=== PATIENT | male | born 1940 | race African-American/Black ===

== ENCOUNTER 2020-03-15 09:22 | Outpatient (CLI) | payer MEDICARE, BC, SELFPAY ==
--- NOTE | 2020-03-15 | ECHO_ITS ---
Patient Info Name: Shawn Ritter Age: 79 years : 1940 Gender: Male Ht: 70 in Wt: 188 lbs BSA: 2.07 m2 HR: 55 bpm BP: 146 / 74 mmHg Heart Rhythm: Bradycardia, Sinus Rhythm Technical Quality: Good Exam Date: 03/15/2020 9:49 AM Exam Location: [facility] Patient Status: Outpatient Admit Date: 03/15/2020 Staff Ordering Physician: BharatAshok MD Cable Testers Helper: Cosme Mccray RDCS Attending Provider: BharatAshok MD Exam Type: CA echo doppler color flow Study Info Indications R00.2 - Palpitations Complete two-dimensional, color flow and Doppler transthoracic echocardiogram is performed. Strain analysis performed. History/Risk Factors Palpitations, HTN. Summary 1. Left ventricular systolic function is normal, estimated at 60-65%. 2. The left ventricular diastolic function is normal. 3. Right ventricular chamber dimension is normal. 4. Left atrial chamber dimension is mildly enlarged. 5. There is trace mitral valve regurgitation. Left Ventricle Left ventricular chamber dimension is normal. Left ventricular systolic function is normal, estimated at 60-65%. The left ventricular diastolic function is normal. Right Ventricle Right ventricular chamber dimension is normal. Left Atria Left atrial chamber dimension is mildly enlarged. Right Atria Right atrial chamber dimension is normal. Aortic Valve The aortic valve is trileaflet. There is mild aortic valve sclerosis. Pulmonic Valve The pulmonic valve is not well visualized. Mitral Valve The mitral valve has normal leaflets. There is trace mitral valve regurgitation. Tricuspid Valve The tricuspid valve leaflets are normal. Pericardium/Pleural The pericardium appears normal. Aorta The aortic root size at the sinus of Valsalva is normal. Left Ventricular Outflow Tract Name Value Normal LVOT 2D LVOT Diameter 2.0 cm LVOT Doppler LVOT Peak Gradient 5 mmHg LVOT Mean Gradient 2 mmHg LVOT VTI 25 cm LVOT VTI/AV VTI Ratio 0.7 LVOT Stroke Volume 75 ml LVOT CO 3.9 l/min LVOT CI 1.9 l/min/m2 Mitral Valve Name Value Normal MV Doppler MV Decel [place] 398 cm/s2 MV PHT 72 ms MV Area (PHT) 3.0 cm2 4.0-5.0 MV Diastolic Function MV E Peak Velocity 99 cm/s MV A Peak Velocity 84 cm/s MV E/A 1.2 MV Decel Time 250 ms MV Annular TDI --
== END 2020-03-15 09:23 | disposition home or self-care (01) ==
PROVIDERS: PCP Internal Medicine; Visit Provider Internal Medicine
DX: R00.2 Palpitations (principal); I51.7 Cardiomegaly
CPT/HCPCS: 93306

== ENCOUNTER 2023-12-11 02:47 | Inpatient (IN) | payer MEDICARE, BC, SELFPAY ==
[2023-12-11] VITALS (20 sets, daily range): BP systolic 132–189; BP diastolic 58–91; PULSE 60–99; RESP 14–20; TEMP 36–37; O2SAT 95–100; BMI 27.8
--- NOTE | ~2023-12-11 | CT_ITS ---
EXAMINATION: CT abdomen pelvis w con DATE: 12/11/2023 04:54 INDICATION: Left lower quadrant abdominal pain TECHNIQUE: Computed tomography (CT) of the abdomen and pelvis was performed with 100 cc Omnipaque 350 intravenous contrast. The dose-length product was 617.59 mGy-cm. Automated exposure control and iter ative reconstruction technique were employed. COMPARISON: None. FINDINGS: There is dependent atelectasis. Heart size normal. No significant pleural or pericardial ef fusion. There is a vascular mass in the dome of the liver measuring approximately 1.8 cm, most likely benign hemangioma. The spleen, pancreas, adrenal glands are unremarkable. Small subcentimeter hypode nsities of the kidneys, most likely benign cysts. There is atherosclerosis of the aorta without aneur ysm. Mild mesenteric edema. No lymphadenopathy. Colonic diverticulosis. Mildly thickened appendix wit h enhancement. Appendix measures 8 mm. Cannot exclude appendicitis. Air-fluid levels present througho ut the small bowel and colon. No transition is identified. Findings suspicious for ileus. No free air or free fluid. No evidence for pneumatosis or portal venous gas. No free air. No abscess. Moderate l umbar spondylosis. IMPRESSION: 1. Mildly thickened appendix measuring 8 mm with enhancement, suspicious for appendicitis. Clinically correlate. 2: Fluid-filled nondilated small bowel and colon with air-fluid levels, suspicious for ileus. Reviewed, dictated and finalized at location A. IMPRESSION: 1. Mildly thickened appendix measuring 8 mm with enhancement, suspicious for ap pendicitis. Clinically correlate. 2: Fluid-filled nondilated small bowel and colon with air-fluid levels, suspici ous for ileus.
[2023-12-11 03:49] LABS: Basophils Percent Auto 0.3 % (0.2-1.2); Hematocrit 33.5 % (42.0-52.0); Hemoglobin 11.1 g/dL (14.0-18.0); Immature Granulocyte Absolute 0.01 K/mm3 (0.00-0.031); Immature Granulocyte Percent A 0.3 % (0-0.5); Lymphocytes Percent Auto 12.6 % (18.3-44.2); Mean Corpuscular HGB Conc 33.1 g/dl (32-36); Mean Corpuscular Hemoglobin 32.9 pg (26-34); Mean Corpuscular Volume 99.4 fl (80-100); Mean Platelet Volume 9.9 fl (7.4-10.4); Monocytes Absolute Auto 0.3 K/mm3 (0.1-0.6); Monocytes Percent Auto 7.8 % (2.6-8.5); Neutrophils Absolute Auto 3.1 K/mm3 (1.3-6.7); Platelet Count Result 222 k/mm3 (150-375); Red Blood Count 3.37 M/mm3 (4.6-6.20); Red Cell Distribution Width 15.2 % (11.5-14.5)
[2023-12-11 04:00] LABS: Alanine Aminotransferase 13 U/L (6-50); Albumin Level 4.3 g/dL (3.5-5.1); Alkaline Phosphatase 63 U/L (38-126); Anion Gap 13 mmol/L (4-12); Aspartate Amino Transferase 23 U/L (17-59); Bilirubin,Total 1.2 mg/dL (0.2-1.3); Blood Urea Nitrogen 19 mg/dL (9-20); Calcium 9.5 mg/dL (8.4-10.2); Carbon Dioxide 22 mmol/L (22-30); Chloride 104 mmol/L (98-107); Estimated CRCL calculation 33 ml/min; Estimated Glomerular Filt Rate 50; Glucose 167 mg/dL (65-110); Lipase 22 U/L (23-300); Potassium 4.1 mmol/L (3.4-5.0); Sodium 139 mmol/L (137-145)
--- NOTE | 2023-12-11 04:44 | ED.ABDPAIN ---
HPI - Abdominal Pain General Chief Complaint: Abdominal Pain <Surendra Valerio MD - Last Filed: 12/11/23 04:48> Stated Complaint: abd pain <Surendra Valerio MD - Last Filed: 12/11/23 04:48> Time Seen by Provider: 12/11/23 03:28 <Surendra Valerio MD - Last Filed: 12/11/23 04:48> History of Present Illness HPI narrative: This is an 83-year-old male, with history of hypertension hyperlipidemia, presents to the emergency department complaining of abdominal pain the past day. The patient describes abdominal pain as cramping and sharp, rated 8/10 and primary located in the left lower quadrant without radiation. He denies associated nausea vomiting or diarrhea. He states his last bowel movement was 2 days ago and he has been able to pass gas. He has no other complaints at this time. <Surendra Valerio MD - Last Filed: 12/11/23 04:48> Related Data Allergies/Adverse Reactions: Allergies Allergy/AdvReac Type Severity Reaction Status Date / Time No Known Allergies Allergy Verified 12/11/23 03:33 <Surendra Valerio MD - Last Filed: 12/11/23 04:48> Review of Systems Review of Systems: CONSTITUTIONAL: Denies fever, chills, or sweats. ENT: Denies rhinorrhea, congestion, sore throat, or otalgia. CARDIOVASCULAR: Denies chest pain, palpitations, or edema. RESPIRATORY: Denies cough or dyspnea. GASTROINTESTINAL: Left lower quadrant abdominal pain Denies nausea, vomiting, or diarrhea. GENITOURINARY: Denies dysuria or hematuria. SKIN: Denies rash or itching. MUSCULOSKELETAL: Denies back pain, joint pain, or myalgia. NEUROLOGIC: Denies headache, numbness, dizziness, or weakness. PSYCHIATRIC: Denies anxiety or depression. <Surendra Valerio MD - Last Filed: 12/11/23 04:48> PMF Past Medical History Medical History: Medical History Hyperlipidemia Hypertension <Surendra Valerio MD - Last Filed: 12/11/23 04:48> Surgical History Surgical History: Surgical History No significant past surgical history <Surendra Valerio MD - Last Filed: 12/11/23 04:48> Social History Social History: Social History Smoking status: Never smoker Alcohol intake: never Substance use: never <Surendra Valerio MD - Last Filed: 12/11/23 04:48> Exam Narrative: GENERAL: Well-developed, well-nourished, and in no acute distress. HEAD: Normocephalic, atraumatic. EYES: PERRLA and EOMI. CHEST: Clear to auscultation. No respiratory distress. No wheezes rales or rhonchi HEART: Regular rate and rhythm. No murmur heard. Normal peripheral pulses. ABDOMEN: Soft, tender to palpation in the left lower quadrant, without rebound or guarding, nondistended, normal active bowel sounds. EXTREMITIES: Normal range of motion. No edema. SKIN: Warm, dry, no rash. NEURO: Alert and oriented x3. No focal deficit. Moving all 4 limbs spontaneously PSYCH: Normal mood and affect. <Surendra Valerio MD - Last Filed: 12/11/23 04:48> Course Course Emergency Course: 04:35 - Bedside ultrasound by me demonstrates a normal appearing bladder without distention. CBC demonstrates mild anemia with hemoglobin 11.1. White blood cell count slightly decreased at 4.0 but is otherwise unremarkable. Chemistries demonstrate creatinine elevation of 1.6. The patient states he has had elevated creatinine since previously but is not sure of the number. Lipase slightly low at 22. Chemistries otherwise unremarkable. 05:00 - Patient signed out to oncoming ED physician, Dr. Franco pending imaging results. <Surendra Valerio MD - Last Filed: 12/11/23 04:48> Reevaluation(s) Reevaluation #1: 0500: Patient signed out to me pending CT imaging. I was called by Radiology with concern for possible appendicitis versus colitis. I did discuss this with the patie
[2023-12-11] MEDS: ONDANSETRON INJ 4 MG/2 ML VIAL IV PUSH (04:57)
[2023-12-11] MEDS: SODIUM CHLORIDE 0.9% IV 1,000 ML 999 ML IV CONT (04:57)
[2023-12-11] MEDS: MORPHINE SULFATE (*CRX) 4 MG/ML INJ IV PUSH (04:57)
[2023-12-11] MEDS: PIPERACILLN/TAZ 3.375GM/NS50ML 3.375 GM/50 ML BAG IVPB ×4 (06:24→23:55)
[2023-12-11 08:02] LABS: Appearance Urine Clear (Clear); Bacteria Urine None Seen /hpf; Bilirubin Urine Negative (Negative); Blood Urine Trace (Negative); Color Urine Yellow (Yellow); Glucose Urine UA Negative (Negative); Ketones Urine Negative (Negative); Leukocyte Esterase Ur Negative LEU/UL (Negative); Nitrate Urine Negative (Negative); Non Pathogenic Casts 0-2; Protein Urine 1+ mg/dL (Negative); RBC Urine 0-2 /hpf (0-2); Squamous Epithelial Cell Urine None Seen /hpf (Few); WBC Urine 0-5 /hpf (0-3)
[2023-12-11 08:11] LABS: CRP 8.5 mg/dL (<1.0)
[2023-12-11 08:17] LABS: Specific Grav Ur 1.061 (1.001-1.035)
[2023-12-11 08:19] LABS: Add Urine Microscopic? YES
--- NOTE | 2023-12-11 08:32 | PC.NURSE ---
This patient, Shawn Ritter, was admitted to Medical Room 249-01. Patient/family oriented to hospital policies and general routines including ID bracelet, bed and alarms, visiting hours, pain management, procedures, bathroom and other care routines, personal items, smoking policy, room service/diet, and visiting hours. Information on how to activate the Rapid Response Team has been discussed. Patient/Family are encouraged to report perceived risks to care and to ask questions if they do not understand what they are told or what they should do.
[2023-12-11] MEDS: SODIUM CHLORIDE 0.9% IV 1,000 ML 75 ML IV CONT (08:34)
--- NOTE | 2023-12-11 09:44 | PM.CNGS ---
Assessment and Plan Assessment and plan (1) Acute appendicitis with localized peritonitis: Qualifiers: Appendicitis gangrene presence: unspecified whether gangrene present Appendicitis perforation presence: unspecified whether perforation present Appendicitis abscess presence: unspecified whether abscess present Qualified Code(s): K35.30 - Acute appendicitis with localized peritonitis, without perforation or gangrene Code(s): K35.30 - Acute appendicitis with localized peritonitis, without perforation or gangrene Status: Acute Assessment and Plan: I have reviewed the CT and discussed the findings with the patient. He has evidence of acute appendicitis. I discussed both medical and surgical treatment options. Patient would prefer to proceed with surgery. I have recommended laparoscopic appendectomy, possible open. I discussed the procedure, risks, benefits, and alternatives. Questions were answered. Patient was started on Zosyn in the emergency department. Will continue antibiotics perioperatively. (2) Hypertension: Qualifiers: Hypertension type: primary hypertension Qualified Code(s): I10 - Essential (primary) hypertension Code(s): I10 - Essential (primary) hypertension Status: Acute History of Present Illness Consult details Consult date: 12/11/23 Reason for consult: other (Right lower quadrant pain) Narrative: This is an 83-year-old man who I am asked to see for right lower quadrant pain. He presented to the emergency department overnight with symptoms that started yesterday morning. He states that he was feeling constipated for about 2 or 3 days prior to this. His pain is localized to the right lower quadrant. He was feeling chills yesterday as well. He denied any nausea or vomiting. In the emergency department a CT was performed. The initial CT reading from the overnight radiologist was possible colitis and appendicitis, however the radiologist this morning is reading it as acute appendicitis and possible ileus. The patient has never had any abdominal surgeries before. He has never had symptoms like this before. Review of Systems Review of Systems: All systems reviewed & are unremarkable except as noted in HPI and below Eyes: Eyes: Denies change in vision ENT: Denies hearing loss, Denies neck pain and Denies sore throat Cardiovascular: Cardiovascular: Denies chest pain and Denies dyspnea Respiratory: Respiratory: Denies cough, Denies dyspnea and Denies wheezing Gastrointestinal: Gastrointestinal: Reports as per HPI Genitourinary: Genitourinary: Denies hematuria and Denies dysuria Musculoskeletal: Musculoskeletal: Denies arthralgias, Denies joint swelling and Denies neck pain Allergic/Immunologic: Allergic/Immunologic: Denies wheezing [facility] Past Medical History Medical History (Updated 12/11/23 @ 09:49 by Skyler Bravo DO) Hyperlipidemia Hypertension Surgical History Surgical History No significant past surgical history Family History Family History (Updated 12/11/23 @ 09:47 by Skyler Bravo DO) Other Family history non-contributory Social History Social History Smoking status: Never smoker Alcohol intake: never Substance use: never Meds Home Medications and Allergies Allergies Allergy/AdvReac Type Severity Reaction Status Date / Time No Known Allergies Allergy Verified 12/11/23 03:33 Vital Signs Vital Signs - 24 hr 12/11/23 02:50 12/11/23 05:18 12/11/23 06:00 Temperature 36.8 C Pulse Rate 99 68 78 Respiratory Rate 18 18 17 Blood Pressure 182/67 H 189/91 H Pulse Oximetry 99 99 96 Oxygen Delivery Room Air 12/11/23 06:25 12/11/23 06:31 12/11/23 06:46 Temperature Pulse Rate 73 77 68 Respiratory Rate 15 20 17 Blood Pressure 149/67 H 169/71 H 148/65 H Pulse Oximetry 97 98
--- NOTE | 2023-12-11 09:50 | WPDHPUPDATE1 ---
History and Physical Update Update Date/Time: 12/11/23 09:50 History and Physical has been reviewed, including an updated exam of the patient. There are NO changes in the patient's condition. Risks, benefits, and alternatives have been discussed and questions answered. Patient agrees to proceed with procedure.
[2023-12-11] MEDS: LACTATED RINGERS 1,000 ML 30 ML IV CONT (10:30)
--- NOTE | 2023-12-11 10:43 | PM.IMHP ---
H&P: HPI History of Present Illness Date/Time: 12/11/23 10:43 Chief Complaint: Right lower quadrant abdominal pain Narrative: This is an 83-year-old gentleman with past medical history of diabetes on metformin, hypertension, hyperlipidemia, gout, and seasonal allergies who presents to the ER with complaints of right lower quadrant abdominal pain x2 days. He also reports subjective fever and chills without nausea or vomiting. He has been unable to have a bowel movement since Wednesday. He reports the pain has been sharp and intermittent in nature. Nothing seems to help the pain or make it worse. He did just stop eating yesterday because the pain was getting worse which is what prompted him to be evaluated. On exam he still has right lower quadrant pain but he says that it has decreased significantly with IV morphine. In the ER, labs were significant for white count 4.0, hemoglobin 11.1, neutrophils 79, creatinine 1.60, glucose 167, and CRP 8.5. His urinalysis was negative. CT abdomen and pelvis showed mildly thickened appendix measuring 8 mm with enhancement. There also fluid-filled nondilated small bowel and colon with air-fluid levels suspicious for ileus. Surgery was consulted. The patient will be admitted in this setting for likely surgical intervention. Review of Systems Review of Systems: All systems reviewed & are unremarkable except as noted in HPI and below PMFSH Past Medical History Medical History Hyperlipidemia Hypertension Surgical History Surgical History No significant past surgical history Family History Family History Other Family history non-contributory Social History Social History (Updated 12/11/23 @ 10:53 by Sienna Villegas APRN) Smoking status: Former smoker Tobacco type: cigarettes Smoking end date: 08/28/69 Alcohol intake: current Drinks per week: 2 Substance use: never Do You Feel Safe in your Home?: Yes Lack of Transportation: No Lack of Food: Never True Current Housing: I Have Housing Concerned About Future Housing: No Difficulty Paying Gas/Electric Bills: No Difficulty Paying for Meds: No Currently Unemployed: No Education: Master's Degree or Higher Difficulty w/ Childcare or Family Care: No Living arrangements: alone Additional living arrangements comments: lives alone, is , and has 1 adult child, Patric Ritter. Patient lists his friend Jannet Suarez, friend as his emergency contact [phone] Occupation/Education: retired Additional occupation/education comments: [employer] Gender identity (if verbalized by the patient): Male Spiritual care concerns: No Meds Home Medications and Allergies Home Medications Medication Instructions Recorded Confirmed Type Zyrtec 10 mg PO DAILY 12/11/23 12/11/23 History aspirin 81 mg tablet,delayed 81 mg PO HS 12/11/23 12/11/23 History release (Enteric Coated Aspirin) atorvastatin 40 mg PO HS 12/11/23 12/11/23 History ferrous sulfate 750 mg PO DAILY 12/11/23 12/11/23 History levothyroxine 137 mcg tablet 137 mcg PO DAILY 12/11/23 12/11/23 History loratadine 10 mg tablet 10 mg PO DAILY 12/11/23 12/11/23 History metformin 750 mg tablet,extended 750 mg PO BID 12/11/23 12/11/23 History release 24 hr probenecid 500 mg tablet 1,000 mg PO BID 12/11/23 12/11/23 History sennosides 25 mg tablet 25 mg PO DAILY PRN Constipation 12/11/23 12/11/23 History Allergies Allergy/AdvReac Type Severity Reaction Status Date / Time No Known Allergies Allergy Verified 12/11/23 03:33 Vital Signs Vital Signs - 24 hr 12/11/23 02:50 12/11/23 05:18 12/11/23 06:00 Temperature 98.2 F Pulse Rate 99 68 78 Respiratory Rate 18 18 17 Blood Pressure 182/67 H 189/91 H Pulse Oximetry 99 99 96 Oxygen Delivery Room A
--- NOTE | 2023-12-11 10:51 | WPDANESEPPF ---
Anes - Initial Pre Proc Eval Procedure: Operation Date: 12/11/23 10:30 Proposed Procedures p Laparoscopic Appendectomy - Skyler Bravo DO Date/Time: 12/11/23 10:51 Surgeon: Maxime Jenkins MD Pre Op Diagnosis: abd pain Patient Data Age: 83 Gender: M Height: 1.78 m Weight: 88.2 kg Last Vital Signs Temp 36.8 C 12/11/23 02:50 Pulse 69 12/11/23 07:16 Resp 16 12/11/23 07:16 BP 145/68 H 12/11/23 07:16 Pulse Ox 97 12/11/23 07:16 O2 Del Method Room Air 12/11/23 02:50 Allergies Allergy/AdvReac Type Severity Reaction Status Date / Time No Known Allergies Allergy Verified 12/11/23 03:33 Home Medications Medication Instructions Recorded Confirmed Type Zyrtec 10 mg PO DAILY 12/11/23 12/11/23 History aspirin 81 mg tablet,delayed 81 mg PO HS 12/11/23 12/11/23 History release (Enteric Coated Aspirin) atorvastatin 40 mg PO HS 12/11/23 12/11/23 History ferrous sulfate 750 mg PO DAILY 12/11/23 12/11/23 History levothyroxine 137 mcg tablet 137 mcg PO DAILY 12/11/23 12/11/23 History loratadine 10 mg tablet 10 mg PO DAILY 12/11/23 12/11/23 History metformin 750 mg tablet,extended 750 mg PO BID 12/11/23 12/11/23 History release 24 hr probenecid 500 mg tablet 1,000 mg PO BID 12/11/23 12/11/23 History sennosides 25 mg tablet 25 mg PO DAILY PRN Constipation 12/11/23 12/11/23 History Laboratory Tests 12/11/23 12/11/23 03:42 07:34 WBC 4.0 L K/mm3 (4.5-10.0) RBC 3.37 L M/mm3 (4.6-6.20) Hgb 11.1 L g/dL (14.0-18.0) Hct 33.5 L % (42.0-52.0) MCV 99.4 fl (80-100) MCH 32.9 pg (26-34) MCHC 33.1 g/dl (32-36) RDW 15.2 H % (11.5-14.5) Plt Count 222 k/mm3 (150-375) MPV 9.9 fl (7.4-10.4) Immature Gran % (Auto) 0.3 % (0-0.5) Neut % (Auto) 79.0 H % (45.5-73.1) Lymph % (Auto) 12.6 L % (18.3-44.2) [place] % (Auto) 7.8 % (2.6-8.5) Eos % (Auto) 0.0 % (0-4.4) Baso % (Auto) 0.3 % (0.2-1.2) Lymph # (Auto) 0.50 L K/mm3 (0.9-3.2) [place] # (Auto) 0.3 K/mm3 (0.1-0.6) Eos # (Auto) 0.0 K/mm3 (0-0.3) Baso # (Auto) 0.0 K/mm3 (0.0-0.1) Abs Immat Gran (auto) 0.01 K/mm3 (0.00-0.031) Absolute Neuts (auto) 3.1 K/mm3 (1.3-6.7) Absolute Nucleated RBC 0.000 K/mm3 (0.0-0.012) Nucleated RBC % 0.0 % (0.0-0.2) Sodium 139 mmol/L (137-145) Potassium 4.1 mmol/L (3.4-5.0) Chloride 104 mmol/L (98-107) Carbon Dioxide 22 mmol/L (22-30) Anion Gap 13 H mmol/L (4-12) BUN 19 mg/dL (9-20) Creatinine 1.60 H mg/dL (0.7-1.3) Estim Creat Clear Calc 33 ml/min Estimated GFR 50 L (59 - ) Glucose 167 H mg/dL (65-110) Calcium 9.5 mg/dL (8.4-10.2) Total Bilirubin 1.2 mg/dL (0.2-1.3) AST 23 U/L (17-59) ALT 13 U/L (6-50) Alkaline Phosphatase 63 U/L (38-126) C-Reactive Protein 8.5 H mg/dL (<1.0) Total Protein 10.0 H g/dL (6.3-8.2) Albumin 4.3 g/dL (3.5-5.1) Lipase 22 L U/L (23-300) Urine Color Yellow (Yellow) Urine Appearance Clear (Clear) Urine pH 5.0 (5.0-9.0) Ur Specific Clarence 1.061 H (1.001-1.035) Urine Protein 1+ H mg/dL (Negative) Urine Glucose (UA) Negative mg/dL (Negative) Urine Ketones Negative mg/dL (Negative) Ur Blood (Man) Trace (Negative) Urine Nitrate Negative (Negative) Urine Bilirubin Negative (Negative) Urine Urobilinogen 1.0 mg/dL (<2.0) Leukocyte Esterase Rfl Negative JIMBO/UL (Negative) Urine RBC 0-2 /hpf (0-2) Urine WBC 0-5 /hpf (0-3) Ur Squamous Epith Cells None seen /hpf (Few) Urine Bacteria None seen /hpf Urine Casts 0-2 Patient hx anesthesia problems: none Family hx anesthesia pro
[2023-12-11] MEDS: BUPIVACAINE/EPINEPHRINE 0.5% 50 ML VIAL 30 ML INFILTRATE (11:14)
[2023-12-11 11:24] LABS: Cholesterol 101 mg/dL (0-200); HDL Direct 34 mg/dL; Triglycerides 42 mg/dL (<150)
[2023-12-11 11:26] LABS: Hemoglobin A1C 5.7 % (<5.7)
[2023-12-11 11:35] LABS: LDL Cholesterol Direct 46 mg/dL
--- NOTE | 2023-12-11 11:35 | W.PM.PROC2 ---
Procedure Note - Detailed Date of Procedure 12/11/23 Pre-op Diagnosis Acute appendicitis Post-op Diagnosis Same (Acute perforated appendicitis) Procedure Performed Laparoscopic appendectomy Surgeon Skyler Bravo, DO Anesthesia General and Local (0.5% bupivicaine with epinephrine) Indications This is an 83-year-old man who presented to the emergency department with right lower quadrant abdominal pain that started yesterday. His pain progressed throughout the night and he then decided to come to the emergency department. He was having chills but no fevers. CT showed evidence of acute appendicitis and mild dilation of the small bowel consistent with ileus. Discussions were made with the patient about treatment options and decision was made to proceed with laparoscopic appendectomy, possible open. Findings Laparoscopic appendectomy was performed. Upon entering the abdominal cavity, there did appear to be some phlegmonous changes and evidence of perforation predominantly focused in the right lower quadrant. The appendix was identified and appeared to be acutely inflamed and likely perforated. The base of the appendix appeared healthy and viable. The appendix was removed and sent to the lab for pathology. The abdomen was then irrigated with about 1 L of sterile saline and no other significant abnormalities were identified. Description of Procedure Procedure as well as risks, benefits, and alternatives were explained to the patient. The patient agreed to proceed. Written consent was obtained and placed in chart prior to procedure. The patient was brought back to surgical suite. He was placed supine on operating table. Time-out was done to confirm the patient and procedure. The patient was then intubated by the Anesthesia Department. His abdomen was prepped and draped in sterile fashion using chlorhexidine prep. A 5 mm incision was made just to the left of the patient's umbilicus and a 5 mm Optiview trocar was advanced through the abdominal layers under direct visualization. Once inside the peritoneal cavity, carbon dioxide insufflation was used to create a pneumoperitoneum. The camera was inserted and the abdomen was inspected. No immediate abnormalities were identified. The patient was then placed in slight Trendelenburg position and rotated to the left. A 5 mm incision was made in the suprapubic region in midline and a 5 mm trocar was inserted under direct visualization. A 12 mm incision was made in the left lower quadrant and a 12 mm trocar was inserted under direct visualization. The right lower quadrant was carefully inspected. The cecum was identified and then this was traced back to the appendix. The appendix was identified and grasped at the mesoappendix and lifted anteriorly. Careful blunt dissection was carried out at the base of the appendix through the mesoappendix using a [place] grasper. An Endo-LAYO 45 mm blue load stapler was then advanced across the base of the appendix and clamped and fired. A white reload was then clamped across the mesoappendix and fired. This freed up our appendix completely. It was then placed in an EndoCatch bag and removed through the left lower quadrant port. The staple lines were then inspected. Hemostasis appeared adequate and the staple lines appeared secure. The area was then irrigated with sterile saline. The pelvis was then carefully inspected and irrigated with sterile saline as well and the remainder of the abdomen was carefully inspected. The patient was then flattened out in bed. One final inspection was made around the abdominal cavity and no other abnormalities were seen. The left lower quadrant port was removed and a Noe-Inge cone was used to approximate the fascia with an 0 Vicryl simple interrupted suture. The remaining ports were then removed under direct visualization. The camera was removed and the pneumoperitoneum was released. 0.5% bupivacaine with epinephrine was infiltrat
[2023-12-11 11:50] LABS: Glucose Point of Care 149 mg/dl (65-105)
[2023-12-11 16:46] LABS: Glucose Point of Care 144 mg/dl (65-105)
[2023-12-11] MEDS: HYDROcodone/acetaminophen (*CRX) 5-325 MG TABLET 1 TAB PO (18:45)
[2023-12-11 20:08] LABS: Glucose Point of Care 255 mg/dl (65-105)
[2023-12-11] MEDS: ATORVASTATIN 40 MG TABLET PO (20:23)
[2023-12-11] MEDS: ASPIRIN 81 MG ENTERIC TABLET PO (20:23)
[2023-12-12] VITALS (7 sets, daily range): BP systolic 144–181; BP diastolic 52–80; PULSE 62–100; RESP 16–20; TEMP 36.4–37.1; O2SAT 95–97
[2023-12-12] MEDS: SODIUM CHLORIDE 0.9% IV 1,000 ML 75 ML IV CONT (04:32)
[2023-12-12 05:03] LABS: Hemoglobin 9.5 g/dL (14.0-18.0); Mean Corpuscular HGB Conc 32.8 g/dl (32-36); Mean Corpuscular Hemoglobin 32.5 pg (26-34); Mean Corpuscular Volume 99.3 fl (80-100); Mean Platelet Volume 9.7 fl (7.4-10.4); Platelet Count Result 160 k/mm3 (150-375); Red Blood Count 2.92 M/mm3 (4.6-6.20); Red Cell Distribution Width 15.6 % (11.5-14.5); White Blood Count 6.6 K/mm3 (4.5-10.0)
[2023-12-12] MEDS: LEVOTHYROXINE SODIUM 25 MCG TABLET PO (05:11)
[2023-12-12] MEDS: LEVOTHYROXINE SODIUM 112 MCG TABLET 137 MCG PO (05:11)
[2023-12-12] MEDS: PIPERACILLN/TAZ 3.375GM/NS50ML 3.375 GM/50 ML BAG IVPB ×4 (05:12→23:35)
[2023-12-12 05:17] LABS: Anion Gap 7 mmol/L (4-12); Blood Urea Nitrogen 18 mg/dL (9-20); Calcium 8.5 mg/dL (8.4-10.2); Carbon Dioxide 23 mmol/L (22-30); Chloride 106 mmol/L (98-107); Estimated CRCL calculation 33 ml/min; Estimated Glomerular Filt Rate 50; Glucose 104 mg/dL (65-110); Potassium 3.9 mmol/L (3.4-5.0); Sodium 136 mmol/L (137-145)
--- NOTE | 2023-12-12 06:41 | PM.IMPN ---
Progress Note: A&P Assessment and Plan (1) Acute appendicitis with localized peritonitis: Qualifiers: Appendicitis abscess presence: unspecified whether abscess present Appendicitis gangrene presence: unspecified whether gangrene present Appendicitis perforation presence: unspecified whether perforation present Qualified Code(s): K35.30 - Acute appendicitis with localized peritonitis, without perforation or gangrene Code(s): K35.30 - Acute appendicitis with localized peritonitis, without perforation or gangrene Status: Acute Assessment and Plan: Patient with RLQ abdominal pain x 2 days and absent bowel movement since Wednesday (12/07) CT imaging shows findings consistent with appendicitis NPO with IVF Zosyn started Pain medications with prn morphine Tylenol for fever general surgery consulted, recs appreciated going for lap appy today 12/11: POD 1 from lap appy Surgery will advance diet to full liquids Stopping IV fluids (2) Hyperlipidemia: Code(s): E78.5 - Hyperlipidemia, unspecified Status: Acute Assessment and Plan: On aspirin and atorvastatin 40 mg check lipid panel 12/11: lipid panel reviewed. (3) Diabetes: Code(s): E11.9 - Type 2 diabetes mellitus without complications Status: Acute Assessment and Plan: On metformin Check A1C SSI low dose ordered Hypoglycemia protocol 12/11: Blood glucose reviewed with good control (4) Hypertension: Qualifiers: Hypertension type: primary hypertension Qualified Code(s): I10 - Essential (primary) hypertension Code(s): I10 - Essential (primary) hypertension Status: Acute Assessment and Plan: Does not appear to be on antihypertensive medications at home BP reviewed Monitor daily 12/11: Intermittent elevations, SBP ranging 140-170's likely pain related and component of underlying htn PRN hydralazine 10 mg Q 6 hours for SBP > 170 mm hg Will discuss with patient if he is interested in starting oral agent now Plan POD 1 Advancing diet to full liquids Monitor BP Subjective Date/time seen: 12/12/23 06:41 Interval history: This is an 83-year-old gentleman with past medical history of diabetes on metformin, hypertension, hyperlipidemia, gout, and seasonal allergies who presents to the ER with complaints of right lower quadrant abdominal pain x2 days.? He also reports subjective fever and chills without nausea or vomiting.? He has been unable to have a bowel movement since Wednesday.? He reports the pain has been sharp and intermittent in nature. Nothing seems to help the pain or make it worse. He did just stop eating yesterday because the pain was getting worse which is what prompted him to be evaluated.? On exam he still has right lower quadrant pain but he says that it has decreased significantly with IV morphine. In the ER, labs were significant for white count 4.0, hemoglobin 11.1, neutrophils 79, creatinine 1.60, glucose 167, and CRP 8.5.? His urinalysis was negative.? CT abdomen and pelvis showed mildly thickened appendix measuring 8 mm with enhancement.? There also fluid-filled nondilated small bowel and colon with air-fluid levels suspicious for ileus.? Surgery was consulted.? The patient will be admitted in this setting for likely surgical intervention. 12/11: No acute events overnight. Patient is tolerating a clear liquid diet. He is not passing flatus yet. Belly is still round and distended with hypoactive bowel sounds. He denies nausea and vomiting states that his abdominal pain is moderate. He is independently up and moving around in the room. Review of Systems Review of Systems: All systems reviewed & are unremarkable except as noted in HPI and below Exam Narrative: General: well appearing, well developed, well noursihed, appears stated age. HEENT: normocephalic, atraumatic. Mucous membranes moist. EOMI, PERRLA, bilateral
[2023-12-12 08:18] LABS: Glucose Point of Care 87 mg/dl (65-105)
[2023-12-12] MEDS: LORATADINE 10 MG TABLET PO (08:57)
[2023-12-12] MEDS: ENOXAPARIN 40 MG/0.4 ML SYRINGE SUB-Q (08:57)
[2023-12-12] MEDS: hydrALAZINE HCL 20 MG/ML VIAL 10 MG IV PUSH ×2 (11:11→19:54)
--- NOTE | 2023-12-12 11:35 | PM.PNGS ---
Progress Note: A&P Assessment and Plan (1) Acute appendicitis with localized peritonitis: Qualifiers: Appendicitis gangrene presence: without gangrene Appendicitis perforation presence: with perforation Appendicitis abscess presence: without abscess Qualified Code(s): K35.32 - Acute appendicitis with perforation, localized peritonitis, and gangrene, without abscess Code(s): K35.30 - Acute appendicitis with localized peritonitis, without perforation or gangrene Status: Acute Assessment and Plan: Continue Zosyn Advance to full liquids Start MiraLax daily Await return of bowel function (2) Hypertension: Qualifiers: Hypertension type: primary hypertension Qualified Code(s): I10 - Essential (primary) hypertension Code(s): I10 - Essential (primary) hypertension Status: Acute (3) Diabetes: Code(s): E11.9 - Type 2 diabetes mellitus without complications Status: Acute Subjective Subjective Date/Time Seen: 12/12/23 11:35 Interval history: Tolerating clear liquids. Pain controlled. Slightly bloated. Passing flatus. Ambulating without difficulty. Exam GI: Inspection: distended and incision (intact with glue) GI Palp: Yes Soft to palpation, Yes Tenderness to palpation present (GI) (slight RLQ) and No Guarding due to palpation present (GI) Auscultation: normal bowel sounds Objective Data Vital Signs Vital Signs: Vital Signs - 24 hr 12/11/23 11:39 12/11/23 11:54 12/11/23 12:09 Temperature 36.9 C Pulse Rate 95 86 85 Respiratory Rate 16 14 18 Blood Pressure 186/76 H 174/73 H 157/61 H Pulse Oximetry 100 100 96 Oxygen Delivery Simple Face Mask Simple Face Mask Room Air Oxygen Flow Rate 8 8 12/11/23 12:24 12/11/23 12:39 12/11/23 13:08 Temperature 36.5 C Pulse Rate 81 79 72 Respiratory Rate 20 15 16 Blood Pressure 152/69 H 154/64 H 170/68 H Pulse Oximetry 96 95 98 Oxygen Delivery Room Air Room Air Oxygen Flow Rate 12/11/23 13:23 12/11/23 13:53 12/11/23 14:53 Temperature 36.5 C 37.0 C 36.0 C L Pulse Rate 67 72 66 Respiratory Rate 16 16 16 Blood Pressure 165/64 H 164/72 H 153/67 H Pulse Oximetry 97 97 98 Oxygen Delivery Oxygen Flow Rate 12/11/23 18:26 12/11/23 19:39 12/11/23 23:57 Temperature 36.6 C 36.3 C L 36.9 C Pulse Rate 65 64 60 Respiratory Rate 16 18 20 Blood Pressure 169/67 H 139/58 L 132/61 Pulse Oximetry 98 99 98 Oxygen Delivery Oxygen Flow Rate 12/11/23 21:26 12/12/23 05:04 12/12/23 07:29 Temperature 36.6 C Pulse Rate 62 Respiratory Rate 18 Blood Pressure 144/52 H Pulse Oximetry 99 95 95 Oxygen Delivery Room Air Room Air Oxygen Flow Rate 12/12/23 08:55 12/12/23 10:26 Temperature 36.4 C Pulse Rate 81 Respiratory Rate 16 Blood Pressure 177/80 H Pulse Oximetry 97 Oxygen Delivery Room Air Oxygen Flow Rate Intake/Output Intake/Output: Intake & Output 12/09/23 12/10/23 12/11/23 12/12/23 23:59 23:59 23:59 23:59 Intake Total 2620.0 1440 Output Total 300 300 Balance 2320.0 1140 Meds/Results Medications: Active Medications Generic Name Dose Route Start Last Admin Trade Name Freq PRN Reason Stop Dose Admin Acetaminophen 650 mg 12/11/23 12:41 Acetaminophen 325 Mg Tablet PO Q6H PRN Mild Pain (1-3) or Fever Hydrocodone Bitart/Acetaminophen 1 tab 12/11/23 12:41 12/11/23 18:45 Hydrocodone/Acetaminophen (*Crx) 5-325 Mg Tablet PO 1 tab Q4H PRN Administration Pain Rated 4-6 Hydrocodone Bitart/Acetaminophen 1 tab 12/11/23 12:41 Hydrocodone/Acetaminophen (*Crx) 7.5-325 Mg Tablet PO Q4H PRN Pain Rated 7-10 Aspirin 81 mg 12/11/23 21:00 12/11/23 20:23 Aspirin 81 Mg Enteric Tablet PO 81 mg HS MAGALIS Administration Atorvastatin Calcium 40 mg 12/11/23 21:00 12/11/23 20:23 Atorvastatin 40 Mg Tablet PO 40 mg HS MAGALIS Administration Dextrose 12.5 gm 12/11/23 11:00 Dextrose 50% 25
[2023-12-12 11:52] LABS: Glucose Point of Care 94 mg/dl (65-105)
--- NOTE | 2023-12-12 11:59 | PCCCNOTE ---
On 12/12/23, the student, Charis Desouza, provided care and completed [facility] documentation on this patient. I have reviewed the student's documentation and agree with the findings.
[2023-12-12] MEDS: polyethylene glycoL 3350 17 GM POWD.PACK PO (13:20)
[2023-12-12 17:02] LABS: Glucose Point of Care 80 mg/dl (65-105)
[2023-12-12] MEDS: ASPIRIN 81 MG ENTERIC TABLET PO (19:52)
[2023-12-12] MEDS: ATORVASTATIN 40 MG TABLET PO (19:52)
[2023-12-12 20:01] LABS: Glucose Point of Care 140 mg/dl (65-105)
[2023-12-13] VITALS (8 sets, daily range): BP systolic 157–178; BP diastolic 54–82; PULSE 82–100; RESP 16–20; TEMP 36.6–38; O2SAT 95–97
[2023-12-13] MEDS: LEVOTHYROXINE SODIUM 112 MCG TABLET PO (05:15)
[2023-12-13] MEDS: LEVOTHYROXINE SODIUM 25 MCG TABLET PO (05:15)
[2023-12-13] MEDS: PIPERACILLN/TAZ 3.375GM/NS50ML 3.375 GM/50 ML BAG IVPB ×4 (05:15→23:18)
[2023-12-13] MEDS: hydrALAZINE HCL 20 MG/ML VIAL 10 MG IV PUSH (05:24)
[2023-12-13 05:29] LABS: Basophils Percent Auto 0.3 % (0.2-1.2); Eosinophils Percent Auto 0.6 % (0-4.4); Hematocrit 27.6 % (42.0-52.0); Hemoglobin 9.2 g/dL (14.0-18.0); Immature Granulocyte Absolute 0.04 K/mm3 (0.00-0.031); Immature Granulocyte Percent A 0.6 % (0-0.5); Lymphocytes Absolute Auto 1.06 K/mm3 (0.9-3.2); Mean Corpuscular HGB Conc 33.3 g/dl (32-36); Mean Corpuscular Hemoglobin 32.2 pg (26-34); Mean Corpuscular Volume 96.5 fl (80-100); Mean Platelet Volume 10.2 fl (7.4-10.4); Monocytes Absolute Auto 0.5 K/mm3 (0.1-0.6); Monocytes Percent Auto 6.5 % (2.6-8.5); Neutrophils Absolute Auto 5.5 K/mm3 (1.3-6.7); Platelet Count Result 149 k/mm3 (150-375); Red Blood Count 2.86 M/mm3 (4.6-6.20); Red Cell Distribution Width 15.2 % (11.5-14.5); White Blood Count 7.1 K/mm3 (4.5-10.0)
[2023-12-13 05:42] LABS: Alanine Aminotransferase 13 U/L (6-50); Albumin Level 3.2 g/dL (3.5-5.1); Alkaline Phosphatase 70 U/L (38-126); Anion Gap 7 mmol/L (4-12); Aspartate Amino Transferase 26 U/L (17-59); Bilirubin,Total 0.8 mg/dL (0.2-1.3); Blood Urea Nitrogen 16 mg/dL (9-20); Calcium 8.6 mg/dL (8.4-10.2); Carbon Dioxide 21 mmol/L (22-30); Chloride 109 mmol/L (98-107); Estimated CRCL calculation 28 ml/min; Estimated Glomerular Filt Rate 41; Glucose 108 mg/dL (65-110); Potassium 3.6 mmol/L (3.4-5.0); Sodium 137 mmol/L (137-145)
--- NOTE | 2023-12-13 07:45 | PM.IMPN ---
Progress Note: A&P Assessment and Plan (1) Acute appendicitis with localized peritonitis: Qualifiers: Appendicitis abscess presence: without abscess Appendicitis gangrene presence: without gangrene Appendicitis perforation presence: with perforation Qualified Code(s): K35.32 - Acute appendicitis with perforation, localized peritonitis, and gangrene, without abscess Code(s): K35.30 - Acute appendicitis with localized peritonitis, without perforation or gangrene Status: Acute Assessment and Plan: Patient with RLQ abdominal pain x 2 days and absent bowel movement since Wednesday (12/07) CT imaging shows findings consistent with appendicitis NPO with IVF Zosyn started Pain medications with prn morphine Tylenol for fever general surgery consulted, recs appreciated going for lap appy today 12/11: POD 1 from lap appy Surgery will advance diet to full liquids Stopping IV fluids 12/12: POD 2 lap appy slight increase in Cr 1.9. He has CKD at baseline. (2) Hyperlipidemia: Code(s): E78.5 - Hyperlipidemia, unspecified Status: Acute Assessment and Plan: On aspirin and atorvastatin 40 mg check lipid panel 12/11: lipid panel reviewed. (3) Diabetes: Code(s): E11.9 - Type 2 diabetes mellitus without complications Status: Acute Assessment and Plan: On metformin Check A1C SSI low dose ordered Hypoglycemia protocol 12/11: Blood glucose reviewed with good control (4) Hypertension: Qualifiers: Hypertension type: primary hypertension Qualified Code(s): I10 - Essential (primary) hypertension Code(s): I10 - Essential (primary) hypertension Status: Acute Assessment and Plan: Does not appear to be on antihypertensive medications at home BP reviewed Monitor daily 12/11: Intermittent elevations, SBP ranging 140-170's likely pain related and component of underlying htn PRN hydralazine 10 mg Q 6 hours for SBP > 170 mm hg Will discuss with patient if he is interested in starting oral agent now 12/12: Declined blood pressure medication Plan POD 2 Advancing diet to low-fat Monitor BP---start amlodipine? Patient declines Subjective Date/time seen: 12/13/23 07:45 Interval history: This is an 83-year-old gentleman with past medical history of diabetes on metformin, hypertension, hyperlipidemia, gout, and seasonal allergies who presents to the ER with complaints of right lower quadrant abdominal pain x2 days.? He also reports subjective fever and chills without nausea or vomiting.? He has been unable to have a bowel movement since Wednesday.? He reports the pain has been sharp and intermittent in nature. Nothing seems to help the pain or make it worse. He did just stop eating yesterday because the pain was getting worse which is what prompted him to be evaluated.? On exam he still has right lower quadrant pain but he says that it has decreased significantly with IV morphine. In the ER, labs were significant for white count 4.0, hemoglobin 11.1, neutrophils 79, creatinine 1.60, glucose 167, and CRP 8.5.? His urinalysis was negative.? CT abdomen and pelvis showed mildly thickened appendix measuring 8 mm with enhancement.? There also fluid-filled nondilated small bowel and colon with air-fluid levels suspicious for ileus.? Surgery was consulted.? The patient will be admitted in this setting for likely surgical intervention. 12/11: No acute events overnight. Patient is tolerating a clear liquid diet. He is not passing flatus yet. Belly is still round and distended with hypoactive bowel sounds. He denies nausea and vomiting states that his abdominal pain is moderate. He is independently up and moving around in the room. 12/12: No acute events overnight. Tolerated his full liquid diet yesterday. Surgery is advance his diet to low-fiber tonight. He is passing gas but still no bowel movement. I discussed with
[2023-12-13 08:16] LABS: Glucose Point of Care 94 mg/dl (65-105)
[2023-12-13] MEDS: LORATADINE 10 MG TABLET PO (09:07)
[2023-12-13] MEDS: polyethylene glycoL 3350 17 GM POWD.PACK PO (09:07)
[2023-12-13] MEDS: ENOXAPARIN 40 MG/0.4 ML SYRINGE SUB-Q (09:07)
[2023-12-13] MEDS: FERROUS SULFATE 325 MG TABLET DR PO (09:07)
--- NOTE | 2023-12-13 11:30 | PM.PNGS ---
Progress Note: A&P Assessment and Plan (1) Acute appendicitis with localized peritonitis: Qualifiers: Appendicitis gangrene presence: without gangrene Appendicitis perforation presence: with perforation Appendicitis abscess presence: without abscess Qualified Code(s): K35.32 - Acute appendicitis with perforation, localized peritonitis, and gangrene, without abscess Code(s): K35.30 - Acute appendicitis with localized peritonitis, without perforation or gangrene Status: Acute Assessment and Plan: Continue Zosyn Advance to soft diet Continue MiraLax Await return of bowel function (2) Hypertension: Qualifiers: Hypertension type: primary hypertension Qualified Code(s): I10 - Essential (primary) hypertension Code(s): I10 - Essential (primary) hypertension Status: Acute (3) Diabetes: Code(s): E11.9 - Type 2 diabetes mellitus without complications Status: Acute Plan I have discussed the patient's case and plan of care with Dr. Bravo. Subjective Subjective Date/Time Seen: 12/13/23 11:30 Post Op day: 2 (Laparoscopic appendectomy) Patient reports: no new complaints and other (Low-grade temp 99.7? F last night) Interval history: Patient doing well today. Incisional postop pain is tolerable. Still feeling bloated after meals, but otherwise tolerating full liquids. Denies any nausea or vomiting. Passing more flatus. Still no BM. Ambulating and tolerating activity without issues. Exam Const: General: comfortable and no acute distress GI: Inspection: incision (incisions dry and intact) and other (minimally distended) GI Palp: Yes Soft to palpation, Yes Tenderness to palpation present (GI) (RLQ) and No Guarding due to palpation present (GI) Auscultation: normal bowel sounds Psych: Mental Status: mental status grossly normal Insight: Good insight present (Psych) Objective Data Vital Signs Vital Signs: Vital Signs - 24 hr 12/12/23 12:05 12/12/23 14:26 12/12/23 19:51 Temperature 98.1 F 98.7 F Pulse Rate 97 95 Respiratory Rate 18 20 Blood Pressure 171/69 H 181/74 H 171/61 H Pulse Oximetry 97 96 Oxygen Delivery 12/12/23 20:43 12/12/23 20:00 12/13/23 00:20 Temperature 99.7 F H Pulse Rate 100 87 Respiratory Rate 16 Blood Pressure 167/70 H 157/65 H Pulse Oximetry 96 Oxygen Delivery Room Air 12/13/23 05:20 12/13/23 06:24 12/13/23 09:07 Temperature 98.1 F Pulse Rate 100 91 Respiratory Rate 20 Blood Pressure 178/82 H 159/63 H Pulse Oximetry 97 Oxygen Delivery Room Air Intake/Output Intake/Output: Intake & Output 12/10/23 12/11/23 12/12/23 12/13/23 23:59 23:59 23:59 23:59 Intake Total 2620.0 1830 740 Output Total 300 1400 300 Balance 2320.0 430 440 Meds/Results Medications: Active Medications Generic Name Dose Route Start Last Admin Trade Name Freq PRN Reason Stop Dose Admin Acetaminophen 650 mg 12/11/23 12:41 Acetaminophen 325 Mg Tablet PO Q6H PRN Mild Pain (1-3) or Fever Hydrocodone Bitart/Acetaminophen 1 tab 12/11/23 12:41 12/11/23 18:45 Hydrocodone/Acetaminophen (*Crx) 5-325 Mg Tablet PO 1 tab Q4H PRN Administration Pain Rated 4-6 Hydrocodone Bitart/Acetaminophen 1 tab 12/11/23 12:41 Hydrocodone/Acetaminophen (*Crx) 7.5-325 Mg Tablet PO Q4H PRN Pain Rated 7-10 Aspirin 81 mg 12/11/23 21:00 12/12/23 19:52 Aspirin 81 Mg Enteric Tablet PO 81 mg HS MAGALIS Administration Atorvastatin Calcium 40 mg 12/11/23 21:00 12/12/23 19:52 Atorvastatin 40 Mg Tablet PO 40 mg HS MAGALIS Administration Dextrose 12.5 gm 12/11/23 11:00 Dextrose 50% 25 Gm/50 Ml Syringe IV PUSH PRN PRN Hypoglycemia Protocol Enoxaparin Sodium 40 mg 12/12/23 09:00 12/13/23 09:07 Enoxaparin 40 Mg/0.4 Ml Syringe SUB-Q 40 mg DAILY MAGALIS Administration Ferrous Sulfate 325 mg 12/13/23 09:00 12/13/23 09:07 Ferrous Sulfat
[2023-12-13 12:14] LABS: Glucose Point of Care 116 mg/dl (65-105)
[2023-12-13 17:08] LABS: Glucose Point of Care 92 mg/dl (65-105)
[2023-12-13 19:38] LABS: Glucose Point of Care 149 mg/dl (65-105)
[2023-12-13] MEDS: ASPIRIN 81 MG ENTERIC TABLET PO (20:21)
[2023-12-13] MEDS: ATORVASTATIN 40 MG TABLET PO (20:21)
[2023-12-13] MEDS: ACETAMINOPHEN 325 MG TABLET 650 MG PO (20:23)
[2023-12-14 04:25] VITALS: BP 164/74
[2023-12-14] MEDS: hydrALAZINE HCL 20 MG/ML VIAL 10 MG IV PUSH (04:26)
[2023-12-14 04:56] VITALS: PULSE 88; RESP 16; TEMP 37.4; O2SAT 96
[2023-12-14] MEDS: PIPERACILLN/TAZ 3.375GM/NS50ML 3.375 GM/50 ML BAG IVPB ×2 (05:26→11:50)
[2023-12-14] MEDS: LEVOTHYROXINE SODIUM 25 MCG TABLET PO (05:27)
[2023-12-14] MEDS: LEVOTHYROXINE SODIUM 112 MCG TABLET PO (05:27)
[2023-12-14 05:28] VITALS: BP 182/86; TEMP 36.8
--- NOTE | 2023-12-14 07:19 | PM.DS ---
DS: Admitting Diagnosis Discharge Date 12/13 Admitting Diagnosis Abdominal pain DS: Discharge Diagnosis Discharge Diagnosis (1) Acute appendicitis with localized peritonitis: Qualifiers: Appendicitis abscess presence: without abscess Appendicitis gangrene presence: without gangrene Appendicitis perforation presence: with perforation Qualified Code(s): K35.32 - Acute appendicitis with perforation, localized peritonitis, and gangrene, without abscess Code(s): K35.30 - Acute appendicitis with localized peritonitis, without perforation or gangrene Status: Acute Assessment and Plan: Patient with RLQ abdominal pain x 2 days and absent bowel movement since Wednesday (12/07) CT imaging shows findings consistent with appendicitis NPO with IVF Zosyn started Pain medications with prn morphine Tylenol for fever general surgery consulted, recs appreciated going for lap appy today 12/11: POD 1 from lap appy Surgery will advance diet to full liquids Stopping IV fluids 12/12: POD 2 lap appy slight increase in Cr 1.9. He has CKD at baseline. (2) Hyperlipidemia: Code(s): E78.5 - Hyperlipidemia, unspecified Status: Acute Assessment and Plan: On aspirin and atorvastatin 40 mg check lipid panel 12/11: lipid panel reviewed. (3) Diabetes: Code(s): E11.9 - Type 2 diabetes mellitus without complications Status: Acute Assessment and Plan: On metformin Check A1C SSI low dose ordered Hypoglycemia protocol 12/11: Blood glucose reviewed with good control (4) Hypertension: Qualifiers: Hypertension type: primary hypertension Qualified Code(s): I10 - Essential (primary) hypertension Code(s): I10 - Essential (primary) hypertension Status: Acute Assessment and Plan: Does not appear to be on antihypertensive medications at home BP reviewed Monitor daily 12/11: Intermittent elevations, SBP ranging 140-170's likely pain related and component of underlying htn PRN hydralazine 10 mg Q 6 hours for SBP > 170 mm hg Will discuss with patient if he is interested in starting oral agent now 12/12: Declined blood pressure medication Plan POD 2 Advancing diet to low-fat Monitor BP---start amlodipine? Patient declines DS: Summary Hospital Course Reason for hospitalization: Appendicitis Hospital Course: This is an 83-year-old gentleman with past medical history of diabetes on metformin, hypertension, hyperlipidemia, gout, and seasonal allergies who presents to the ER with complaints of right lower quadrant abdominal pain x2 days.? He also reports subjective fever and chills without nausea or vomiting.? He has been unable to have a bowel movement since Wednesday.? He reports the pain has been sharp and intermittent in nature. Nothing seems to help the pain or make it worse. He did just stop eating yesterday because the pain was getting worse which is what prompted him to be evaluated.? On exam he still has right lower quadrant pain but he says that it has decreased significantly with IV morphine. In the ER, labs were significant for white count 4.0, hemoglobin 11.1, neutrophils 79, creatinine 1.60, glucose 167, and CRP 8.5.? His urinalysis was negative.? CT abdomen and pelvis showed mildly thickened appendix measuring 8 mm with enhancement.? There also fluid-filled nondilated small bowel and colon with air-fluid levels suspicious for ileus.? Surgery was consulted.? The patient will be admitted in this setting for likely surgical intervention. 12/11:? No acute events overnight.? Patient is tolerating a clear liquid diet.? He is not passing flatus yet.? Belly is still round and distended with hypoactive bowel sounds.? He denies nausea and vomiting states that his abdominal pain is moderate.? He is independently up and moving around in the room. 12/12:? No acute events overnight.? Tolerated his full liquid diet yesterday.?
[2023-12-14 08:15] LABS: Glucose Point of Care 107 mg/dl (65-105)
[2023-12-14 08:34] VITALS: RESP 16; O2SAT 96
[2023-12-14 08:52] VITALS: O2SAT 96
[2023-12-14 11:43] LABS: Glucose Point of Care 105 mg/dl (65-105)
--- NOTE | 2023-12-14 11:45 | PM.PNGS ---
Progress Note: A&P Assessment and Plan (1) Acute appendicitis with localized peritonitis: Qualifiers: Appendicitis gangrene presence: without gangrene Appendicitis perforation presence: with perforation Appendicitis abscess presence: without abscess Qualified Code(s): K35.32 - Acute appendicitis with perforation, localized peritonitis, and gangrene, without abscess Code(s): K35.30 - Acute appendicitis with localized peritonitis, without perforation or gangrene Status: Acute Assessment and Plan: OK to discharge today. Will give 1 week of oral antibiotics. Follow up in office in 2 weeks. Subjective Subjective Date/Time Seen: 12/14/23 11:45 Interval history: Bowels moving. Pain minimal. Ambulating without difficulty. Exam GI: Inspection: incision (intact with glue) GI Palp: Yes Soft to palpation, No Tenderness to palpation present (GI) and No Guarding due to palpation present (GI) Objective Data Vital Signs Vital Signs: Vital Signs - 24 hr 12/13/23 14:05 12/13/23 15:00 12/13/23 20:23 Temperature 36.6 C 38.0 C H Pulse Rate 82 Respiratory Rate 18 Blood Pressure 172/66 H 165/54 H Pulse Oximetry 95 Oxygen Delivery 12/13/23 20:00 12/13/23 21:00 12/13/23 21:23 Temperature 37.7 C H 37.6 C Pulse Rate 98 Respiratory Rate 16 Blood Pressure 157/64 H Pulse Oximetry 95 Oxygen Delivery Room Air 12/14/23 04:25 12/14/23 04:56 12/14/23 05:28 Temperature 37.4 C 36.8 C Pulse Rate 88 Respiratory Rate 16 Blood Pressure 164/74 H 182/86 H Pulse Oximetry 96 Oxygen Delivery 12/14/23 08:52 12/14/23 08:34 Temperature Pulse Rate Respiratory Rate 16 Blood Pressure Pulse Oximetry 96 96 Oxygen Delivery Room Air Room Air Intake/Output Intake/Output: Intake & Output 12/11/23 12/12/23 12/13/23 12/14/23 23:59 23:59 23:59 23:59 Intake Total 2620.0 1830 1680 50 Output Total 300 1400 1025 475 Balance 2320.0 430 655 -425 Meds/Results Medications: Active Medications Generic Name Dose Route Start Last Admin Trade Name Freq PRN Reason Stop Dose Admin Acetaminophen 650 mg 12/11/23 12:41 12/13/23 20:23 Acetaminophen 325 Mg Tablet PO 650 mg Q6H PRN Administration Mild Pain (1-3) or Fever Hydrocodone Bitart/Acetaminophen 1 tab 12/11/23 12:41 12/11/23 18:45 Hydrocodone/Acetaminophen (*Crx) 5-325 Mg Tablet PO 1 tab Q4H PRN Administration Pain Rated 4-6 Hydrocodone Bitart/Acetaminophen 1 tab 12/11/23 12:41 Hydrocodone/Acetaminophen (*Crx) 7.5-325 Mg Tablet PO Q4H PRN Pain Rated 7-10 Aspirin 81 mg 12/11/23 21:00 12/13/23 20:21 Aspirin 81 Mg Enteric Tablet PO 81 mg HS MAGALIS Administration Atorvastatin Calcium 40 mg 12/11/23 21:00 12/13/23 20:21 Atorvastatin 40 Mg Tablet PO 40 mg HS MAGALIS Administration Dextrose 12.5 gm 12/11/23 11:00 Dextrose 50% 25 Gm/50 Ml Syringe IV PUSH PRN PRN Hypoglycemia Protocol Enoxaparin Sodium 40 mg 12/12/23 09:00 12/14/23 08:34 Enoxaparin 40 Mg/0.4 Ml Syringe SUB-Q Not Given DAILY MAGALIS Ferrous Sulfate 325 mg 12/13/23 09:00 12/14/23 08:34 Ferrous Sulfate [address] PO Not Given DAILY MAGALIS Glucagon 1 mg 12/11/23 11:00 Glucagon For Inj 1 Mg Vial IM PRN PRN Hypoglycemia Protocol Glucose 15 gm 12/11/23 11:00 Glucose Oral Gel 15 Gm Of Glucse In 37.5 Gm Tube PO PRN PRN Hypoglycemia Protocol Hydralazine HCl 10 mg 12/12/23 11:38 12/14/23 04:26 Hydralazine Hcl 20 Mg/Ml Vial IV PUSH 10 mg Q8H PRN Administration Blood Pressure - High Piperacillin/Tazobactam/Dextrose 3.375 gm in 50 mls @ 100 mls/hr 12/11/23 12:00 12/14/23 05:56 Zosyn 3.375 Gm/Ns 50 Ml IVPB Infused Q6H MAGALIS Infusion Dextrose 1,000 mls @ 100 mls/hr 12/11/23 11:00 Dextrose 5% 1,000 Ml IVPB PRN PRN Hypoglycemia Protocol Insulin Aspart 2 - 5 units
== END 2023-12-14 13:55 | disposition home or self-care (01) | DRG 399 ==
LOC: ANHED 05:06 → ANH2MED 07:59
PROVIDERS: Preventive Medicine Aerospace Medicine; Surgery; Admitting Provider Internal Medicine; Emergency Provider Emergency Medicine; PCP Internal Medicine; Visit Provider Nurse Practitioner Acute Care
PROC: 0DTJ4ZZ Resection of Appendix, Percutaneous Endoscopic Approach (ICD-10-PCS; CPT 44970; principal; 2023-12-11 10:30)
DX: K35.32 Acute appendicitis with perforation, localized peritonitis, and gangrene, without abscess (principal); I10 Essential (primary) hypertension; E78.5 Hyperlipidemia, unspecified; E11.9 Type 2 diabetes mellitus without complications
CPT/HCPCS: 36415; 74177; 80048; 80053; 80061; 81001; 82948; 83036; 83690; 85025; 85027; 86140; 88304; 96361; 96374; 96375; 99285; A9270; J0360; J1650; J2270; J2405; J2543; J3010; J7030; J7120; Q9967